=== PATIENT | female | born 1940 | race Caucasian/White ===

== ENCOUNTER 2017-04-01 05:16 | Inpatient (IN) | payer MEDICARE, BC ==
[2017-03-20 11:29] LABS: CLARITY,URINE Clear (Clear); COLOR,URINE Yellow (Yellow); GLUCOSE, URINE Negative (Neg); KETONES,URINE Negative (Neg); LEUKOCYTE ESTERASE ,URINE Negative (Neg); NITRITES, URINE Negative (Neg); OCCULT BLOOD,URINE Negative (Neg); PH,URINE 6.5 (4.8-8.0); PROTEIN,URINE Negative (Neg)
[2017-03-20 11:31] LABS: UA COLLECTION TYPE CLN CATCH MIDSTREAM
[2017-03-20 11:41] LABS: PRE OP PROTIME 9.9 SECONDS (9.0-12.0)
[2017-03-20 11:47] LABS: BASOPHILS % (AUTO) 0.6 % (0-1); EOSINOPHILS # (AUTO) 0.2 X10'3 (0-0.9); EOSINOPHILS % (AUTO) 2.3 % (0-6); LYMPHOCYTES # (AUTO) 2.1 X10'3 (1.1-4.8); LYMPHOCYTES % (AUTO) 26.5 % (21-51); MEAN CORPUSCULAR HEMOGLOBIN 31.2 PG (27.0-31.0); MEAN CORPUSCULAR HGB CONC 33.3 % (33.0-36.5); MEAN CORPUSCULAR VOLUME 93.7 FL (78-98); MEAN PLATELET VOLUME 7.8 FL (7.4-10.4); MONOCYTES # (AUTO) 0.4 X10'3 (0-0.9); MONOCYTES % (AUTO) 4.5 % (2-12); NEUTROPHILS # (AUTO) 5.3 X10'3 (1.8-7.7); NEUTROPHILS % (AUTO) 66.1 % (42-75); PRE OP HEMATOCRIT 42.6 % (35.0-45.0); PRE OP HEMOGLOBIN 14.2 g/dL (12.0-16.0); PRE OP PLATELET COUNT 282 X10'3 (140-440); RED BLOOD COUNT 4.54 X10'6 (4.20-5.60); RED CELL DISTRIBUTION WIDTH 13.4 % (11.5-14.5)
[2017-03-20 11:55] LABS: ALBUMIN 3.7 G/DL (3.4-5.0); ALBUMIN/GLOBULIN RATIO 0.9 (1.1-1.5); ALKALINE PHOSPHATASE 85 IU/L (46-116); BLOOD UREA NITROGEN 26 MG/DL (7-18); BUN/CREATININE RATIO 28.3 (6.6-38.0); C-REACTIVE PROTEIN 0.22 MG/DL (0.0-0.5); CALCIUM 9.4 MG/DL (8.5-10.1); CHLORIDE 105 MMOL/L (99-107); CREATININE 0.92 MG/DL (0.40-0.90); PRE OP ALT 20 U/L (30-65); PRE OP ANION GAP 9 (8-16); PRE OP AST 15 U/L (10-37); PRE OP GLUCOSE 112 MG/DL (70-104); PRE OP POTASSIUM 4.2 MMOL/L (3.4-5.1); PRE OP SODIUM 142 MMOL/L (135-145); TOTAL CARBON DIOXIDE 28.5 MMOL/L (24-32); TOTAL PROTEIN 7.7 G/DL (6.4-8.2); eGFR 59 ML/MIN
[2017-04-01] VITALS (19 sets, daily range): BP systolic 94–126; BP diastolic 50–71
[~2017-04-01] VITALS: Ht 165.1 cm; Wt 83.9 kg
[~2017-04-01 05:16] MED LIST: ALPR-624 PO; ASPI81TA52 PO; ATOR10TA87 PO; CHOL10008 PO; DOCU-28 PO; FAMC500T18 PO; HYDR-565 PO; HYOS0.1275 PO; OMEP40CA37 PO; ringers solution, lacted 1,000 ML IV SCH
[2017-04-01] MEDS ORDERED: vancomycin inj 1,500 MG in normal saline 300ml IV soln IV ONE (05:30)
[2017-04-01] MEDS ORDERED: oxyCODONE SR 10mg (sust. release) tab PO ONE (05:30)
[2017-04-01] MEDS ORDERED: tranexamic acid inj. 1,000 MG in normal saline 100ml IV soln 90 ML IV ONE (05:30)
[2017-04-01] MEDS ORDERED: gabapentin 300mg capsule PO ONE (05:30)
[2017-04-01] MEDS ORDERED: acetaminophen 325mg tablet PO ONE (05:30)
[2017-04-01] MEDS ORDERED: ceFAZolin 2gm in dextrose, iso 100 ML IV ONE (05:30)
[2017-04-01] MEDS ORDERED: bacitracin inj 150,000 UNIT in sodium chloride irrig. sol 3,000 ML IR ONE (05:30)
[2017-04-01] MEDS ORDERED: famotidine 20mg tablet PO ONE (05:30)
[2017-04-01] MEDS ORDERED: LIDOcaine 1% (10mg/ml) 2ml vial ONE (06:18)
[2017-04-01] MEDS ORDERED: heparin 10,000 units/1 ML INJ ONE (06:26)
[2017-04-01] MEDS ORDERED: MORPHINE SULFATE/PF 0.5 MG/ML 10ML AMPUL ONE (06:43)
[2017-04-01] MEDS ORDERED: fentaNYL/PF 50MCG/1 ML 2ML syringe ONE (06:43)
[2017-04-01] MEDS ORDERED: midazolam 2 mg/2 ml injection ONE (06:43)
[2017-04-01] MEDS ORDERED: sevoflurane 250ml liquid IH ONE (07:16)
[2017-04-01] MEDS ORDERED: propofol inj 20 ML IV ONE (07:57)
[2017-04-01] MEDS ORDERED: ePHEDrine 50MG/ML INJ. ONE (07:57)
[2017-04-01] MEDS ORDERED: glycopyrrolate 0.2mg/ml inj ONE (08:39)
[2017-04-01] MEDS ORDERED: phenylephrine 10mg/ml inj IV ONE (08:56)
[2017-04-01] MEDS ORDERED: ceFAZolin 1000mg inj ONE (09:05)
[2017-04-01] MEDS ORDERED: ondansetron/PF 4mg/2ml inj ONE (09:25)
[2017-04-01] MEDS: potassium cl 20mEq in 1/2 NS 1,000 ML IV SCH ×2 (09:59→20:20)
[2017-04-01] MEDS ORDERED: diphenhydrAMINE 25mg capsule PO PRN ×2 (10:00)
[2017-04-01] MEDS ORDERED: oxyCODONE IR 5mg (immed. release) tablet PO PRN (10:00)
[2017-04-01] MEDS ORDERED: acetaminophen 325mg tablet PO PRN (10:00)
[2017-04-01] MEDS ORDERED: magnesium hydroxide 30ml (MOM) UD suspension PO PRN (10:00)
[2017-04-01] MEDS ORDERED: HYDROmorphone 1 mg/ml syringe IV PRN ×2 (10:00→10:05)
[2017-04-01] MEDS ORDERED: ondansetron/PF 4mg/2ml inj IV PRN ×3 (10:00→10:05)
[2017-04-01] MEDS ORDERED: bisacodyl 10mg suppository rectal RC PRN (10:00)
[2017-04-01] MEDS ORDERED: naloxone 2mg/2ml inj 2 MG in normal saline 500ml IV soln 500 ML IV PRN (10:01)
[2017-04-01] MEDS ORDERED: ringers solution, lacted 1,000 ML IV SCH (10:01)
[2017-04-01] MEDS ORDERED: labetalol 5mg/ml 20ml inj. IV PRN (10:05)
[2017-04-01] MEDS ORDERED: hydrALAZINE 20mg/ml inj. IV PRN (10:05)
[2017-04-01] MEDS ORDERED: proCHLORperazine 10 MG/2 ml inj IV PRN (10:05)
[2017-04-01] MEDS ORDERED: fentaNYL/PF 50MCG/1 ML 2ML syringe IV PRN (10:05)
[2017-04-01] MEDS ORDERED: diphenhydrAMINE 50 mg/ml inj IV PRN (10:05)
[2017-04-01] MEDS ORDERED: meperidine/PF 25mg/ml syringe IV ONE (10:05)
[2017-04-01] MEDS: oxyCODONE IR 5mg (immed. release) tablet PO PRN (12:29)
[2017-04-01] MEDS: gabapentin 300mg capsule PO SCH ×2 (12:31→20:35)
[2017-04-01] MEDS: acyclovir 200 MG capsule PO SCH ×3 (14:46→20:51)
[2017-04-01] MEDS: acetaminophen 325mg tablet PO SCH ×2 (14:46→20:21)
[2017-04-01] MEDS: ceFAZolin inj. 1,000 MG in dextrose 5%-water 50ml 50 ML IV SCH (16:39)
[2017-04-01] MEDS ORDERED: vancomycin/NS 1 GM ADD-VANTAGE 250 ML IV SCH (20:00)
[2017-04-01] MEDS: docusate sod 100mg capsule PO SCH (20:21)
[2017-04-01] MEDS: ALPRAZolam 0.5mg tablet PO SCH (20:21)
[2017-04-01] MEDS: celeCOXIB 100mg capsule PO SCH (20:21)
[2017-04-01] MEDS: ascorbic acid 500mg tablet PO SCH (20:22)
[2017-04-01] MEDS: sennosides 8.6mg tablet PO SCH (21:00)
[2017-04-02] MEDS: ceFAZolin inj. 1,000 MG in dextrose 5%-water 50ml 50 ML IV SCH ×2
[2017-04-02] MEDS ORDERED: CEFAZOLIN SODIUM/NORMAL SALINE 100 ML IV ONE (00:35)
[2017-04-02] MEDS: potassium cl 20mEq in 1/2 NS 1,000 ML IV SCH ×3 (01:59→17:59)
[2017-04-02] MEDS: acetaminophen 325mg tablet PO SCH ×4 (02:00→21:30)
[2017-04-02 03:00] VITALS: BP 115/67
[2017-04-02] MEDS: oxyCODONE IR 5mg (immed. release) tablet PO PRN ×2 (04:57→09:56)
[2017-04-02 06:00] VITALS: BP 111/61
[2017-04-02 06:43] LABS: BASOPHILS % (AUTO) 0.2 % (0-1); EOSINOPHILS # (AUTO) 0.2 X10'3 (0-0.9); EOSINOPHILS % (AUTO) 2.1 % (0-6); HEMATOCRIT 36.8 % (35.0-45.0); HEMOGLOBIN 12.1 g/dl (12.0-16.0); LYMPHOCYTES # (AUTO) 1.7 X10'3 (1.1-4.8); MEAN CORPUSCULAR HEMOGLOBIN 31.1 PG (27.0-31.0); MEAN CORPUSCULAR HGB CONC 32.8 % (33.0-36.5); MEAN CORPUSCULAR VOLUME 94.6 FL (78-98); MEAN PLATELET VOLUME 7.2 FL (7.4-10.4); MONOCYTES # (AUTO) 0.5 X10'3 (0-0.9); MONOCYTES % (AUTO) 6.9 % (2-12); NEUTROPHILS # (AUTO) 5.3 X10'3 (1.8-7.7); NEUTROPHILS % (AUTO) 68.8 % (42-75); PLATELET COUNT 226 X10'3 (140-440); RED BLOOD COUNT 3.89 X10'6 (4.20-5.60); RED CELL DISTRIBUTION WIDTH 13.6 % (11.5-14.5); WHITE BLOOD COUNT 7.7 X10'3 (4.5-11.0)
[2017-04-02 06:49] LABS: INR 1.5 INR; PROTHROMBIN TIME 15.2 SECONDS (9.0-12.0)
[2017-04-02 07:01] LABS: ANION GAP 6 (8-16); CHLORIDE 109 MMOL/L (99-107); POTASSIUM 4.3 MMOL/L (3.5-5.1); SODIUM 143 MMOL/L (135-145); TOTAL CARBON DIOXIDE 28.4 MMOL/L (24-32)
[2017-04-02] MEDS: docusate sod 100mg capsule PO SCH ×2 (08:00→21:29)
[2017-04-02] MEDS: acyclovir 200 MG capsule PO SCH ×5 (08:00→18:00)
[2017-04-02] MEDS: pantoprazole 40mg Tablet.DR PO SCH (08:30)
[2017-04-02] MEDS: gabapentin 300mg capsule PO SCH ×3 (08:30→21:29)
[2017-04-02] MEDS: celeCOXIB 100mg capsule PO SCH ×2 (08:30→21:30)
[2017-04-02] MEDS: ALPRAZolam 0.5mg tablet PO SCH ×2 (08:31→21:39)
[2017-04-02] MEDS: ascorbic acid 500mg tablet PO SCH ×2 (08:31→21:30)
[2017-04-02] MEDS: multivitamins, therapeutics tablet PO SCH (08:31)
[2017-04-02] MEDS ORDERED: warfarin 3mg tablet PO ONE (10:00)
[2017-04-02 12:24] VITALS: BP 106/42
[2017-04-02 18:52] VITALS: BP 105/54
[2017-04-02] MEDS: sennosides 8.6mg tablet PO SCH (21:30)
[2017-04-02 22:30] VITALS: BP 138/63
[2017-04-03] MEDS: acetaminophen 325mg tablet PO SCH ×2 (02:24→08:00)
[2017-04-03] MEDS ORDERED: HYDROcodone/acetaminophen 10/325mg tab PO PRN (05:55)
[2017-04-03 06:00] VITALS: BP 130/55
[2017-04-03] MEDS: HYDROcodone/acetaminophen 10/325mg tab PO PRN ×3 (06:00→20:14)
[2017-04-03 06:37] LABS: BASOPHILS % (AUTO) 0.3 % (0-1); EOSINOPHILS # (AUTO) 0.2 X10'3 (0-0.9); EOSINOPHILS % (AUTO) 2.6 % (0-6); HEMATOCRIT 35.3 % (35.0-45.0); HEMOGLOBIN 11.7 g/dl (12.0-16.0); LYMPHOCYTES # (AUTO) 2.1 X10'3 (1.1-4.8); LYMPHOCYTES % (AUTO) 21.4 % (21-51); MEAN CORPUSCULAR HEMOGLOBIN 31.4 PG (27.0-31.0); MEAN CORPUSCULAR HGB CONC 33.2 % (33.0-36.5); MEAN CORPUSCULAR VOLUME 94.5 FL (78-98); MEAN PLATELET VOLUME 7.4 FL (7.4-10.4); MONOCYTES # (AUTO) 0.8 X10'3 (0-0.9); MONOCYTES % (AUTO) 7.8 % (2-12); NEUTROPHILS # (AUTO) 6.6 X10'3 (1.8-7.7); NEUTROPHILS % (AUTO) 67.9 % (42-75); PLATELET COUNT 232 X10'3 (140-440); RED BLOOD COUNT 3.74 X10'6 (4.20-5.60); RED CELL DISTRIBUTION WIDTH 13.7 % (11.5-14.5); WHITE BLOOD COUNT 9.7 X10'3 (4.5-11.0)
[2017-04-03 06:46] LABS: INR 1.6 INR; PROTHROMBIN TIME 16.6 SECONDS (9.0-12.0)
[2017-04-03] MEDS: ALPRAZolam 0.5mg tablet PO SCH ×2 (08:00→21:43)
[2017-04-03] MEDS: acyclovir 200 MG capsule PO SCH ×5 (08:00→20:11)
[2017-04-03] MEDS: pantoprazole 40mg Tablet.DR PO SCH (08:05)
[2017-04-03] MEDS: ascorbic acid 500mg tablet PO SCH ×2 (08:10→20:15)
[2017-04-03] MEDS: celeCOXIB 100mg capsule PO SCH ×2 (08:10→20:14)
[2017-04-03] MEDS: docusate sod 100mg capsule PO SCH ×2 (08:10→20:14)
[2017-04-03] MEDS: gabapentin 300mg capsule PO SCH ×3 (08:10→20:15)
[2017-04-03] MEDS: multivitamins, therapeutics tablet PO SCH (08:10)
[2017-04-03 10:00] VITALS: BP 105/53
[2017-04-03] MEDS ORDERED: warfarin 3mg tablet PO ONE (10:00)
[2017-04-03] MEDS ORDERED: acetaminophen 325mg tablet PO PRN (10:00)
[2017-04-03 18:00] VITALS: BP 123/63
[2017-04-03 20:00] VITALS: BP 147/67
[2017-04-03] MEDS: sennosides 8.6mg tablet PO SCH (20:15)
[2017-04-03 22:00] VITALS: BP 147/67
[2017-04-04] MEDS: HYDROcodone/acetaminophen 10/325mg tab PO PRN ×2 (05:26→09:19)
[2017-04-04 06:00] VITALS: BP 130/80
[2017-04-04 06:42] LABS: BASOPHILS % (AUTO) 0.2 % (0-1); EOSINOPHILS # (AUTO) 0.3 X10'3 (0-0.9); EOSINOPHILS % (AUTO) 3.3 % (0-6); HEMATOCRIT 35.3 % (35.0-45.0); HEMOGLOBIN 11.7 g/dl (12.0-16.0); LYMPHOCYTES # (AUTO) 2.6 X10'3 (1.1-4.8); LYMPHOCYTES % (AUTO) 26.3 % (21-51); MEAN CORPUSCULAR HEMOGLOBIN 31.2 PG (27.0-31.0); MEAN CORPUSCULAR HGB CONC 33.2 % (33.0-36.5); MEAN PLATELET VOLUME 7.7 FL (7.4-10.4); MONOCYTES # (AUTO) 0.9 X10'3 (0-0.9); NEUTROPHILS % (AUTO) 61.2 % (42-75); PLATELET COUNT 231 X10'3 (140-440); RED BLOOD COUNT 3.76 X10'6 (4.20-5.60); RED CELL DISTRIBUTION WIDTH 13.8 % (11.5-14.5); WHITE BLOOD COUNT 9.8 X10'3 (4.5-11.0)
[2017-04-04 07:09] LABS: INR 1.6 INR; PROTHROMBIN TIME 16.6 SECONDS (9.0-12.0)
[2017-04-04] MEDS ORDERED: ASPI-1264 PO (07:59)
[2017-04-04] MEDS: pantoprazole 40mg Tablet.DR PO SCH (09:19)
[2017-04-04] MEDS: gabapentin 300mg capsule PO SCH (09:20)
[2017-04-04] MEDS: celeCOXIB 100mg capsule PO SCH (09:20)
[2017-04-04] MEDS: docusate sod 100mg capsule PO SCH (09:20)
[2017-04-04] MEDS: ascorbic acid 500mg tablet PO SCH (09:21)
[2017-04-04] MEDS: multivitamins, therapeutics tablet PO SCH (09:21)
[2017-04-04] MEDS: ALPRAZolam 0.5mg tablet PO SCH (09:28)
[2017-04-04] MEDS: acyclovir 200 MG capsule PO SCH ×2 (09:28→10:30)
[2017-04-04 10:00] VITALS: BP 147/73
[2017-04-04] MEDS ORDERED: warfarin 3mg tablet PO ONE (10:00)
== END 2017-04-04 12:00 | disposition home or self-care (01) | DRG 467 ==
LOC: PAS IN 05:16 → EDSTATUS 07:30 → ORTHO 4S 11:01
PROVIDERS: ADMIT Specialist; ATTEND Specialist
PROC: 0SPS0JZ Removal of Synthetic Substitute from Left Hip Joint, Femoral Surface, Open Approach (ICD-10-PCS; 2017-04-01)
PROC: 0SRS0JZ Replacement of Left Hip Joint, Femoral Surface with Synthetic Substitute, Open Approach (ICD-10-PCS; principal; 2017-04-01 07:16)
DX: T84.031A Mechanical loosening of internal left hip prosthetic joint, initial encounter (principal); D62 Acute posthemorrhagic anemia; E78.5 Hyperlipidemia, unspecified; K21.9 Gastro-esophageal reflux disease without esophagitis; F41.9 Anxiety disorder, unspecified; Y79.2 Prosthetic and other implants, materials and accessory orthopedic devices associated with adverse incidents; Z90.710 Acquired absence of both cervix and uterus; Z79.899 Other long term (current) drug therapy; Z79.01 Long term (current) use of anticoagulants; Z79.82 Long term (current) use of aspirin; Z87.891 Personal history of nicotine dependence; Y92.89 Other specified places as the place of occurrence of the external cause
CPT/HCPCS: 36415; 73502; 80051; 80053; 81003; 85025; 85610; 85651; 85730; 86140; 86885; 86900; 86901; 87070; 87075; 97110; 97116; 97161; 97530; 97535; A4565; A6253; A6449; A6455; A7000; C1758; C1776; J0690; J1644; J2250; J2274; J2370; J2405; J2704; J3010; J3370; J3490; J7060; J7120

== ENCOUNTER → 2019-08-12 | Emergency (ER) | payer MEDICARE, BC ==
[~2019-08-12] VITALS: Ht 167.6 cm; Wt 93.0 kg
[~2019-08-12] MED LIST changes: -FAMC500T18 PO; +FAMC500T23 PO; +HYDR-4353 PO; -HYDR-565 PO; +OMEP40CA13 PO; -OMEP40CA37 PO; +morphine 4 MG/ML inj SYRINge IV ONE; +propofol 10mg/ml 20ml vial IV ONE; -ringers solution, lacted 1,000 ML IV SCH
[2019-08-12 14:56] LABS: BASOPHILS # (AUTO) 0.1 X10'3 (0-0.2); BASOPHILS % (AUTO) 0.8 % (0-1); EOSINOPHILS # (AUTO) 0.2 X10'3 (0-0.9); EOSINOPHILS % (AUTO) 2.7 % (0-6); HEMATOCRIT 41.7 % (35.0-45.0); LYMPHOCYTES # (AUTO) 2.2 X10'3 (1.1-4.8); LYMPHOCYTES % (AUTO) 26.7 % (21-51); MEAN CORPUSCULAR HEMOGLOBIN 31.6 PG (27.0-31.0); MEAN CORPUSCULAR HGB CONC 33.6 g/dL (33.0-36.5); MEAN PLATELET VOLUME 7.6 FL (7.4-10.4); MONOCYTES # (AUTO) 0.7 X10'3 (0-0.9); MONOCYTES % (AUTO) 7.9 % (2-12); NEUTROPHILS # (AUTO) 5.2 X10'3 (1.8-7.7); NEUTROPHILS % (AUTO) 61.9 % (42-75); PLATELET COUNT 254 X10'3 (140-440); RED BLOOD COUNT 4.44 X10'6 (4.20-5.60); WHITE BLOOD COUNT 8.3 X10'3 (4.5-11.0)
[2019-08-12 15:12] LABS: CLARITY,URINE CLEAR (Clear); COLOR,URINE STRAW (Yellow); GLUCOSE, URINE NEGATIVE (Neg); KETONES,URINE NEGATIVE (Neg); LEUKOCYTE ESTERASE ,URINE SMALL (Neg); NITRITES, URINE NEGATIVE (Neg); OCCULT BLOOD,URINE NEGATIVE (Neg); PROTEIN,URINE NEGATIVE (Neg); UA COLLECTION TYPE STRAIGHT CATH; UROBILINOGEN,URINE 0.2 E.U/dL (0.2-1.0)
[2019-08-12 15:14] LABS: ALANINE AMINOTRANSFERASE 22 U/L (12-78); ALBUMIN 3.5 G/DL (3.4-5.0); ALKALINE PHOSPHATASE 82 IU/L (46-116); ANION GAP 7 (8-16); ASPARTATE AMINO TRANSFERASE 30 U/L (10-37); BILIRUBIN,TOTAL 0.9 MG/DL (0.1-1.0); BLOOD UREA NITROGEN 17 MG/DL (7-18); BUN/CREATININE RATIO 17.5 (6.6-38.0); CALCIUM 9.2 MG/DL (8.5-10.1); CHLORIDE 106 MMOL/L (99-107); CREATININE 0.97 MG/DL (0.40-0.90); GLUCOSE 91 MG/DL (70-104); POTASSIUM 3.8 MMOL/L (3.5-5.1); SODIUM 140 MMOL/L (135-145); TOTAL CARBON DIOXIDE 26.8 MMOL/L (24-32); TOTAL PROTEIN 7.1 G/DL (6.4-8.2); eGFR 55 ML/MIN
[2019-08-12 15:16] LABS: TROPONIN I < 0.04 NG/ML (0.0-0.05)
[2019-08-12 15:17] LABS: BACTERIA,URINE FEW /HPF (Neg); RBC,URINE 0-2 /HPF (0-2); SQUAMOUS EPITHELIAL CELL,UR FEW /LPF (FEW); WBC,URINE 0-4 /HPF (0-4)
--- NOTE | 2019-08-12 18:29 | NUR ---
got pt up and out of bed to take a walk and she did very well. MD belle. Pt getting dressed and she is going to call her to come and get her.
[2019-08-12 18:40] VITALS: BP 108/54
== END | disposition home or self-care (01) ==
LOC: ER 14:13
DX: S73.005A Unspecified dislocation of left hip, initial encounter (principal); G89.29 Other chronic pain; F41.9 Anxiety disorder, unspecified; Z98.890 Other specified postprocedural states; Z79.82 Long term (current) use of aspirin; Z79.899 Other long term (current) drug therapy; Z96.642 Presence of left artificial hip joint; W18.39XA Other fall on same level, initial encounter; Y93.89 Activity, other specified; Y92.009 Unspecified place in unspecified non-institutional (private) residence as the place of occurrence of the external cause; Y99.8 Other external cause status
CPT/HCPCS: 27265; 36415; 73501; 73502; 80053; 81001; 84484; 85025; 87088; 93005; 96374; 96376; 99152; 99153; 99285; J2270; 27250; 94760; 96375

== ENCOUNTER 2021-07-09 07:23 | Emergency (ER) | payer MEDICARE, BC ==
[~2021-07-09] VITALS: Ht 167.6 cm; Wt 90.0 kg
[~2021-07-09 07:23] MED LIST changes: -OMEP40CA13 PO; +OMEP40CA21 PO; -morphine 4 MG/ML inj SYRINge IV ONE; -propofol 10mg/ml 20ml vial IV ONE
[2021-07-09] MEDS ORDERED: morphine 4 MG/ML inj SYRINge IV ONE (09:00)
[2021-07-09 10:05] LABS: BASOPHILS # (AUTO) 0.1 X10'3 (0-0.2); BASOPHILS % (AUTO) 0.6 % (0-1); EOSINOPHILS # (AUTO) 0.1 X10'3 (0-0.9); EOSINOPHILS % (AUTO) 1.2 % (0-6); HEMATOCRIT 39.1 % (35.0-45.0); HEMOGLOBIN 13.3 g/dl (12.0-16.0); LYMPHOCYTES # (AUTO) 1.5 X10'3 (1.1-4.8); LYMPHOCYTES % (AUTO) 15.6 % (21-51); MEAN CORPUSCULAR HEMOGLOBIN 31.3 PG (27.0-31.0); MEAN CORPUSCULAR HGB CONC 34.2 g/dL (33.0-36.5); MEAN CORPUSCULAR VOLUME 91.5 FL (78-98); MEAN PLATELET VOLUME 7.4 FL (7.4-10.4); MONOCYTES # (AUTO) 0.6 X10'3 (0-0.9); NEUTROPHILS # (AUTO) 7.6 X10'3 (1.8-7.7); NEUTROPHILS % (AUTO) 76.6 % (42-75); PLATELET COUNT 287 X10'3 (140-440); RED BLOOD COUNT 4.27 X10'6 (4.20-5.60); RED CELL DISTRIBUTION WIDTH 13.4 % (11.5-14.5); WHITE BLOOD COUNT 9.9 X10'3 (4.5-11.0)
[2021-07-09 10:08] LABS: ALANINE AMINOTRANSFERASE 21 U/L (12-78); ALBUMIN 3.1 G/DL (3.4-5.0); ALBUMIN/GLOBULIN RATIO 0.8 (1.1-1.5); ALKALINE PHOSPHATASE 73 IU/L (46-116); ANION GAP 8 (8-16); ASPARTATE AMINO TRANSFERASE 15 U/L (10-37); BILIRUBIN,TOTAL 0.8 MG/DL (0.1-1.0); BLOOD UREA NITROGEN 18 MG/DL (7-18); CALCIUM 9.4 MG/DL (8.5-10.1); CHLORIDE 107 MMOL/L (99-107); CREATININE 0.82 MG/DL (0.40-0.90); GLUCOSE 96 MG/DL (70-104); POTASSIUM 4.3 MMOL/L (3.5-5.1); SODIUM 142 MMOL/L (135-145); TOTAL PROTEIN 7.2 G/DL (6.4-8.2); eGFR 67 ML/MIN
[2021-07-09] MEDS ORDERED: AMOX-115 PO (10:51)
[2021-07-09 11:12] VITALS: BP 123/59
[2021-07-09] MEDS ORDERED: amox tr/potassium clavulanate 500mg/125mg TAB PO SCH (17:30)
== END 2021-07-09 11:15 | disposition home or self-care (01) ==
LOC: ER 07:24
DX: K57.92 Diverticulitis of intestine, part unspecified, without perforation or abscess without bleeding (principal); G89.29 Other chronic pain; F41.9 Anxiety disorder, unspecified; Z90.49 Acquired absence of other specified parts of digestive tract; Z79.2 Long term (current) use of antibiotics; Z79.899 Other long term (current) drug therapy
CPT/HCPCS: 36415; 74176; 80053; 85025; 96374; 99284; J2270

== ENCOUNTER 2024-06-05 02:23 | Emergency (ER) | payer MEDICARE, BC ==
[~2024-06-05] VITALS: Ht 160 cm; Wt 81.8 kg
[~2024-06-05 02:23] MED LIST changes: -ALPR-624 PO; +ALPR0.5T8 PO; +FAMC250T2 PO; -FAMC500T23 PO; -HYDR-4353 PO; -HYOS0.1275 PO; +OMEP20CA16 PO; -OMEP40CA21 PO
[2024-06-05 03:57] VITALS: TEMP 98.4
[2024-06-05 05:04] VITALS: BP 122/72; PULSE 82; RESP 16; O2SAT 95
== END 2024-06-05 05:48 | disposition home or self-care (01) ==
LOC: ER 02:24
DX: M17.12 Unilateral primary osteoarthritis, left knee (principal); F41.9 Anxiety disorder, unspecified; Z90.49 Acquired absence of other specified parts of digestive tract; Z79.82 Long term (current) use of aspirin; W19.XXXA Unspecified fall, initial encounter; Y93.89 Activity, other specified; Y92.89 Other specified places as the place of occurrence of the external cause; Y99.8 Other external cause status
CPT/HCPCS: 73700; 99284